=== PATIENT | female | born 1945 | race Caucasian/White ===

== ENCOUNTER 2020-01-29 14:45 | Emergency (ER) | payer OTHER, SELFPAY ==
--- NOTE | ~2020-01-29 | XR_ITS ---
XR knee LT min 4V DATE: 01/29/2020 17:59 INDICATION: Fall. Anterior knee pain. TECHNIQUE: 4 views including crosstable lateral COMPARISON: None FINDINGS: Osteopenia. No fracture or dislocation or joint effusion. No periosteal reaction or bone destruction. There is moderate loss of height of medial compartment joint space. No radiopaque intra-articular loo se body or chondrocalcinosis is evident. IMPRESSION: Osteopenia Moderate loss of height of medial, joint space Reviewed, dictated and finalized at location B.
--- NOTE | ~2020-01-29 | XR_ITS ---
XR tibia fibula LT 2V DATE: 01/29/2020 17:59 INDICATION: Fall. 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 There is moderate loss of height of the med ial compartment joint space. There is diffuse osteopenia. No fracture or dislocation, periosteal reaction or bone destruction of the tibia or fibula. Normal al ignment at the knee and ankle joints. 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 IMPRESSION: Calcification along medial collateral ligament which may be seconda ry to Stella-Stieda disease Osteopenia No fracture or dislocation
[2020-01-29 14:57] VITALS: BP 141/61; PULSE 81; RESP 15; TEMP 36.8; O2SAT 98
--- NOTE | 2020-01-29 18:18 | ED.HEATRA ---
HPI - Head Injury General Chief complaint: Head Injury <Lillie Shipman PA-C - Last Filed: 01/29/20 18:33> Stated complaint: Fall, [place] <Lillie Shipman PA-C - Last Filed: 01/29/20 18:33> Time Seen by Provider: 01/29/20 16:36 <Lillie Shipman PA-C - Last Filed: 01/29/20 18:33> Source: patient <Lillie Shipman PA-C - Last Filed: 01/29/20 18:33> Mode of arrival: ambulatory <PA Crawley Last Filed: 01/29/20 18:33> Limitations: no limitations <Lillie Shipman PA-C - Last Filed: 01/29/20 18:33> History of Present Illness HPI Narrative: Patient presents with chief complaint of laceration over the right brow with bruising after tripping prior to arrival and hitting her face on the cabinet. Patient states she also has bruise to her left forearm and left anterior knee and lower leg from falling. Patient states she is not on a blood thinner besides a baby aspirin daily. Patient denies any change in vision or hearing, loss of consciousness, bleeding from any of her orifices, headache, nausea, vomiting, diarrhea or any other symptoms. Patient denies any neck pain. Patient denies any chest pain or shortness of breath. Patient denies any other injuries. <Lillie Shipman PA-C - Last Filed: 01/29/20 18:33> Related Data Home medications: Home Medications Medication Instructions Recorded Confirmed acyclovir 200 mg capsule 200 mg PO TID 11/16/19 amlodipine 5 mg tablet 5 mg PO DAILY 11/16/19 aspirin 81 mg chewable tablet 81 mg PO DAILY 11/16/19 calcium carbonate 600 mg calcium 600 mg PO DAILY 11/16/19 (1,500 mg) tablet cholecalciferol (vitamin D3) 50 2,000 unit PO DAILY 11/16/19 mcg (2,000 unit) tablet famotidine 20 mg tablet 20 mg PO DAILY 11/16/19 fluticasone propionate 50 1 spray NASAL DAILY 11/16/19 mcg/actuation nasal spray,suspension lisinopril 10 mg tablet 10 mg PO DAILY 11/16/19 meclizine 25 mg tablet 25 mg PO BID 11/16/19 omega 8-ltg-ypg-fish oil 100 cap PO 11/16/19 mg-160 mg-1,000 mg capsule ondansetron HCl 4 mg tablet 4 mg PO Q8H 11/16/19 rosuvastatin 20 mg tablet 20 mg PO DAILY 11/16/19 sertraline 50 mg tablet 50 mg PO DAILY 11/16/19 vitamin B comp and C no.3 15 mg-10 1 cap PO DAILY 11/16/19 mg-50 mg-5 mg-300 mg capsule <Lillie Shipman PA-C - Last Filed: 01/29/20 18:33> Allergies/Adverse reactions: Allergies Allergy/AdvReac Type Severity Reaction Status Date / Time No Known Allergies Allergy Verified 07/13/19 02:09 <Lillie Shipman PA-C - Last Filed: 01/29/20 18:33> PMFSH Social History Social History: Social History Smoking status: Never smoker Alcohol intake: never Additional living arrangements comments: Gender identity (if verbalized by the patient): Female <Lillie Shipman PA-C - Last Filed: 01/29/20 18:33> Exam Narrative: Exam Narrative: GENERAL: Well-appearing, well-nourished, and in no acute distress. HEAD: 2cm laceration over right brow. Well approximated. not bleeding with surrounding ecchymosis. EYES: PERRLA and EOMI. ENT: Nares clear, no rhinorrhea or epistaxis. Mucous membranes moist. Oropharynx without tonsillar hypertrophy exudate or other lesions. Bilateral TMs pearly bishop nonbulging. No hemotympanum. NECK: Supple. No adenopathy or masses. CHEST: Clear to auscultation. No respiratory distress. No wheezes rales or rhonchi HEART: Regular rate and rhythm. No murmur heard. Normal peripheral pulses. ABDOMEN: Soft, nontender, nondistended, normal active bowel sounds. EXTREMITIES: Pain with palpation of contusion to left forearm. No loss of ROM. Tenderness with palpation of anterior left knee and lower leg, with large area of ecchymosis. Weight bearing intact.Gait steady. SKIN: See extremities and head. Warm, dry, no rash. NEURO: No focal deficits. Alert and oriented x3. PSYCH: Normal mood and affect. <Lillie Shipman PA-C - Fabián F
== END 2020-01-29 18:34 | disposition home or self-care (01) ==
PROVIDERS: Emergency Provider General Practice; PCP Emergency Medicine
DX: S01.111A Laceration without foreign body of right eyelid and periocular area, initial encounter (principal); S40.022A Contusion of left upper arm, initial encounter; S80.02XA Contusion of left knee, initial encounter; W01.198A Fall on same level from slipping, tripping and stumbling with subsequent striking against other object, initial encounter
CPT/HCPCS: 12011; 73564; 73590; 99284

== ENCOUNTER → 2020-06-18 09:52 | Outpatient (CLI) | payer OTHER, SELFPAY ==
--- NOTE | ~2020-06-18 | DEXA_ITS ---
Bone Density Report Name: Keyana Jerez Age: 75 Sex: Female Ethnicity: White Date of : 1945 Indication: osteopenia; height loss; hysterectomy; postmenopausal Referring Provider: INGRID QUIROZ Study: Bone densitometry was performed. Exam Date: June 18, 2020 Accession number: [id number] Bone Density: Region BMD T-score Z-score Classification AP Spine (L1, L4) 0.921 -1.1 1.2 Osteopenia Femoral Neck (Left) 0.687 -1.5 0.5 Osteopenia Total Hip (Left) 0.723 -1.8 -0.1 Osteopenia Femoral Neck (Right) 0.692 -1.4 0.6 Osteopenia Total Hip (Right) 0.677 -2.2 -0.5 Osteopenia Total Hip Mean 0.700 -2.0 -0.3 Osteopenia World Health Organization criteria for BMD impression classify patients as: Normal (T-score at or above -1.0), Osteopenia (T-score between -1.0 and -2.5), or Osteoporosis (T-score at or below -2.5). 10-year Fracture Risk(1): Major Osteoporotic Fracture 9.7% Hip Fracture 1.5% Reported Risk Factors: [place] (), Neck BMD=0.692, BMI=35.6 (1) FRAX(R) Version 3.08. Fracture probability calculated for an untreated patient. Fracture probability may be lower if the patient has received treatment. Previous Exams: Region Exam Age BMD T-score BMD Change BMD Change Date g/cm2 vs Baseline vs Previous AP Spine(L1, L4) 06/18/2020 75 0.921 -1.1 -0.226* -0.029* 07/28/2018 73 0.951 -0.8 -0.196* -0.040* 04/28/2016 71 0.991 -0.4 -0.156* -0.156* 12/31/2010 65 1.147 1.0 Total Hip(Left) 06/18/2020 75 0.723 -1.8 -0.152* -0.019 07/28/2018 73 0.742 -1.6 -0.133* -0.032* 04/28/2016 71 0.774 -1.4 -0.102* -0.102* 12/31/2010 65 0.875 -0.5 Total Hip(Right) 06/18/2020 75 0.677 -2.2 -0.138* -0.034* 07/28/2018 73 0.711 -1.9 -0.103* -0.036* 04/28/2016 71 0.748 -1.6 -0.067* -0.067* 12/31/2010 65 0.814 -1.0 *Denotes significance at 95% confidence level, LSC for AP Spine = 0.022 g/cm2, LSC for Total Hip = 0.027 g/cm2 Clinical Information Provided by Patient: Has used the following medications: Vitamin D, Calcium, women's bone vitamin Has the following medical conditions: Hysterectomy Patient maximum height was 62 Menopause Age: 40 No regular weight bearing exercise Drinks caffeinated beverages Onset of menses at age 14 Number of children 2
== END ==
PROVIDERS: PCP Emergency Medicine; Visit Provider Emergency Medicine
DX: Z78.0 Asymptomatic menopausal state (principal); M85.89 Other specified disorders of bone density and structure, multiple sites
CPT/HCPCS: 77080

== ENCOUNTER 2020-07-07 04:48 | Emergency (ER) | payer OTHER, SELFPAY ==
--- NOTE | ~2020-07-07 | XR_ITS ---
EXAMINATION: XR humerus RT DATE: 07/07/2020 06:06 INDICATION: Right upper pain. Fall. TECHNIQUE: 2 views of right humerus were obtained. COMPARISON: Chest 2 views 07/14/2019 FINDINGS: Bone alignment is normal. There is a comminuted fracture of proximal humerus with nondispla meera fracture component at the greater tuberosity and mild impaction at the surgical neck. There is se eladio acromioclavicular joint osteoarthritis and mild glenohumeral joint osteoarthritis. IMPRESSION: 1. Comminuted one-part fracture of proximal right humerus. 2. Polyarticular osteoarthritis. Reviewed, dictated and finalized at location A.
--- NOTE | ~2020-07-07 | CT_ITS ---
EXAMINATION: CT brain wo con DATE: 07/07/2020 05:47 INDICATION: Head injury. TECHNIQUE: Computed tomography (CT) of the head was performed without intravenous contrast. The mA wa s adjusted according to patient size. Iterative reconstruction technique was employed. The dose-lengt h product was 605.33 mGy-cm. COMPARISON: None FINDINGS: There are scattered areas of low attenuation in the cerebral white matter. There is no intr acranial hemorrhage, acute infarction, or abnormal intracranial mass lesion. The ventricles are jorge l l in size. There are likely changes of ocular lens replacement surgeries. There is mild mucosal thick ening in the ethmoid sinuses. The mastoid air cells are normal. IMPRESSION: 1. Mild nonspecific cerebral white matter disease, which likely represents chronic small vessel ische carine disease. Reviewed, dictated and finalized at location A. IMPRESSION: 1. Mild nonspecific cerebral white matter disease, which likely represents edger saw operator nguyen small vessel ischemic disease.
--- NOTE | ~2020-07-07 | XR_ITS ---
EXAMINATION: XR elbow RT min 3V DATE: 07/07/2020 06:06 INDICATION: Right elbow pain. TECHNIQUE: 4 views of right elbow were obtained. COMPARISON: None. FINDINGS: Bone alignment is normal. No fracture. There is mild elbow joint osteoarthritis. There are enthesophytes at the medial and lateral humeral epicondyles. No elbow joint effusion. IMPRESSION: 1. Mild elbow joint osteoarthritis. Reviewed, dictated and finalized at location A.
[2020-07-07 04:52] VITALS: BP 141/54; PULSE 66; RESP 18; TEMP 36.2; O2SAT 100
--- NOTE | 2020-07-07 05:10 | ED.GENADULT ---
HPI - General Adult General Chief complaint: Extremity Injury, Upper Stated complaint: Fall out of bed, right arm pain Time Seen by Provider: 07/07/20 05:10 Source: patient Mode of arrival: ambulatory Limitations: no limitations History of Present Illness HPI narrative: Patient is a 75-year-old female who presents for evaluation of arm pain following a fall. Patient states that she woke up to use the restroom, ambulated to the restroom was sitting on a stool when the stool flipped, she lost her balance and fell. Patient states she is unsure if she hit her head, but did tell her nursing staff that she did not hit her head. Patient is denying any headache, vision changes or nausea. She states that she put her right arm out to break her fall and is experiencing some right upper arm pain. She denies any wrist pain. She denies back pain, hip pain or leg pain. Patient is left-hand dominant. Related Data Home Medications Medication Instructions Recorded Confirmed acyclovir 200 mg capsule 200 mg PO TID 11/16/19 04/23/20 aspirin 81 mg chewable tablet 81 mg PO DAILY 11/16/19 04/23/20 calcium carbonate 600 mg calcium 600 mg PO DAILY 11/16/19 04/23/20 (1,500 mg) tablet cholecalciferol (vitamin D3) 50 2,000 unit PO DAILY 11/16/19 04/23/20 mcg (2,000 unit) tablet famotidine 20 mg tablet 20 mg PO DAILY 11/16/19 04/23/20 meclizine 25 mg tablet 25 mg PO BID 11/16/19 04/23/20 omega 5-evs-jbb-fish oil 100 cap PO 11/16/19 04/23/20 mg-160 mg-1,000 mg capsule ondansetron HCl 4 mg tablet 4 mg PO Q8H 11/16/19 04/23/20 vitamin B comp and C no.3 15 mg-10 1 cap PO DAILY 11/16/19 04/23/20 mg-50 mg-5 mg-300 mg capsule Allergies Allergy/AdvReac Type Severity Reaction Status Date / Time No Known Allergies Allergy Verified 07/07/20 04:55 Review of Systems Review of Systems: Narrative: CONSTITUTIONAL: Denies fever HEENT: Denies vision changes ENT: Denies rhinorrhea, congestion, sore throat, or otalgia. CARDIOVASCULAR: Denies chest pain, palpitations, or edema. RESPIRATORY: Denies cough or dyspnea. GASTROINTESTINAL: Denies abdominal pain, nausea, vomiting, or diarrhea. GENITOURINARY: Denies dysuria or hematuria. SKIN: Denies rash or itching. MUSCULOSKELETAL: Denies back pain,reports right upper extremity pain, right elbow pain NEUROLOGIC: Denies headache, numbness, or weakness. PMFSH Past Medical History Medical History HLD (hyperlipidemia) Osteopenia Spinal stenosis of lumbar region Social History Social History Smoking status: Never smoker Alcohol intake: never Additional living arrangements comments: Gender identity (if verbalized by the patient): Female Exam Narrative: Exam Narrative: Nursing note and vitals reviewed. CONSTITUTIONAL: The patient appears well-developed and well-nourished. No distress. HEAD: Normocephalic and atraumatic. EYES: PERRL, EOMI, normal conjunctiva, anicteric EARS: External ears clear bilaterally, no hemotympanum MOUTH: OP clear, no erythema, exudates NECK: midline trachea, supple, FROM. No midline Cervical spinal tenderness. CARDIOVASCULAR: Normal rate, regular rhythm, normal heart sounds and intact distal pulses. No murmurs, rubs, gallops. PULMONARY: Effort normal and breath sounds normal. No respiratory distress. The patient has no wheezes, rales, ronchi. No chest wall tenderness, crepitus or ecchymoses. ABDOMINAL: Soft. Nontender, nondistended. No palpable masses EXTREMITIES:: moving all extremities symmetrically. -RUE: No deformity. Decreased range of motion at the shoulder, elbow due to pain. Mild ecchymosis at the right wrist without pain. Intact sensation median, ulnar, radial nerve. Pulse 2+. -LUE: No deformity. Normal ROM at shoulder, elbow, wrist, and hand., Sensation intact M/U/R. Pulse 2+ -RLE: No deformity. Normal ROM at hip, knee, ankle. Sensation intact dist
[2020-07-07 06:12] VITALS: BP 137/54; PULSE 63; RESP 20; O2SAT 98
[2020-07-07] MEDS: oxyCODONE/ACETAMINOPHEN 5-325 MG TABLET 1 TABLET PO (06:12)
[2020-07-07 06:50] VITALS: BP 137/54; PULSE 63; RESP 20; O2SAT 98
== END 2020-07-07 06:52 | disposition home or self-care (01) ==
PROVIDERS: Emergency Provider Emergency Medicine; PCP Emergency Medicine
DX: S42.291A Other displaced fracture of upper end of right humerus, initial encounter for closed fracture (principal); E78.5 Hyperlipidemia, unspecified; M85.80 Other specified disorders of bone density and structure, unspecified site; M19.021 Primary osteoarthritis, right elbow; M19.011 Primary osteoarthritis, right shoulder; W18.11XA Fall from or off toilet without subsequent striking against object, initial encounter
CPT/HCPCS: 70450; 73060; 73080; 99284; A4565; A9270

== ENCOUNTER → 2021-01-14 14:01 | Outpatient (CLI) | payer OTHER, SELFPAY ==
--- NOTE | ~2021-01-14 | XR_ITS ---
XR abdomen/kub 1V DATE: 01/14/2021 14:27 INDICATION: Flank pain TECHNIQUE: AP rejection, 3 views COMPARISON: 07/13/2019 CT abdomen pelvis with IV contrast material 05/03/2019 KUB FINDINGS: Diffuse osteopenia. Degenerative change of the lower thoracic spine. Levoscoliosis and dege nerative change of the lumbar spine. Degenerative change at the hip joints, especially on the left. Psoas shadows are intact. No visceromegaly is evident. There is no evidence of bowel obstruction. The lung bases appear clear. There is prominent calcification of the left of the first lumbar vertebral body which corresponds on the prior CT abdomen pelvis examination due to prominent calcification at the origin of the left derrick l artery. Abdominal aortic calcification is noted. IMPRESSION: Nonspecific abdomen; no significant change since 05/03/2019 Reviewed, dictated and finalized at Location A. Reviewed, dictated and finalized at location A. SPLITTER
== END ==
PROVIDERS: PCP Urology; Visit Provider Urology
DX: R10.9 Unspecified abdominal pain (principal); M85.88 Other specified disorders of bone density and structure, other site
CPT/HCPCS: 74018

== ENCOUNTER → 2021-01-27 12:02 | Outpatient (CLI) | payer OTHER, SELFPAY ==
--- NOTE | ~2021-01-27 | CT_ITS ---
EXAMINATION: CT abdomen pelvis wo/w con EXAM DATE: 01/27/2021 13:16 INDICATION: Microscopic hematuria. TECHNIQUE: Spiral CT of the abdomen and pelvis was performed without contrast. The patient was then injected with small bolus intravenous Omnipaque 350, followed by delay of approximately 10 minutes to allow collecting system to opacify. A post contrast scan abdomen and pelvis was performed during inj ection of remaining contrast. A total of 130 cc intravenous contrast was administered. The dose-marisela th product (DLP) for this examination was 1983.67 mGy-cm. The exposure was tailored according to pat ient size (auto mA exposure control), and iterative reconstruction (ASIR) was used as additional dose reduction technique. Comparison is made to prior examination from 07/13/2019. FINDINGS: There is no hydronephrosis or nephrolithiasis. There is a 7 cm right renal cyst. The kidn eys enhance symmetrically. There are no suspicious renal lesions. The calyces and opacified portion s of ureters are unremarkable, without filling defects or focal suspicious strictures. Right ureter w as not opacified. Punctate focus of bladder gas. The uterus is not identified and has likely been shipley rgically resected. The liver, spleen, adrenal glands and pancreas are unremarkable. Gallbladder is unremarkable. No bi liary obstruction. There is no retroperitoneal or pelvic lymphadenopathy. There is mild scattered arteriosclerotic disease. The appendix is not positively visualized. There is no pericecal inflammatory change to suggest appe ndicitis. The stomach and small bowel are unremarkable. There is expected amount of colonic stool. No free intraperitoneal gas. The heart is normal in size. There are no pericardial or pleural e ffusions. The lung bases are unremarkable. There are no osteoblastic or osteolytic lesions identifi ed. IMPRESSION: 1. No suspicious genitourinary findings. Reviewed, dictated and finalized at location B. ERIOLOGIST SOIL
[2021-01-27 12:43] LABS: Estimated Glomerular Filt Rate > 60
== END ==
PROVIDERS: PCP Emergency Medicine; Visit Provider Nurse Practitioner Adult Health
DX: R31.29 Other microscopic hematuria (principal)
CPT/HCPCS: 74178; Q9967

== ENCOUNTER → 2022-10-01 10:34 | Outpatient (CLI) | payer OTHER, SELFPAY ==
--- NOTE | ~2022-10-01 | US_ITS ---
EXAMINATION: US thyroid DATE: 10/01/2022 11:01 INDICATION: Nontoxic single thyroid nodule. TECHNIQUE: Multiple ultrasound images of the thyroid were obtained. COMPARISON: None. FINDINGS: The right thyroid lobe measures 5.3 x 2.5 x 2.6 cm. The left thyroid lobe measures 4.7 x 3.1 x 1.9 c m. The thyroid is diffusely heterogeneous and hypoechoic. Vascularity is normal. In the right thyroi d lobe, there is an 18 mm mixed cystic and solid, hypoechoic, wider than tall nodule with smooth collin in without echogenic foci (TI-RADS TR3). In the right thyroid lobe, there is an 8 mm solid, hypoechoi c, wider than tall nodule with smooth margin without echogenic foci (TR4). IMPRESSION: 1. Thyroid nodules. Consider thyroid ultrasound in one year. 2. Heterogeneous thyroid, likely chronic lymphocytic (Tyesha) thyroiditis. Reviewed, dictated and finalized at location A. LY DAY CARE PROVIDER
== END ==
PROVIDERS: PCP Emergency Medicine; Visit Provider Emergency Medicine
DX: E04.2 Nontoxic multinodular goiter (principal)
CPT/HCPCS: 76536

== ENCOUNTER → 2023-03-10 13:24 | Outpatient (CLI) | payer OTHER, SELFPAY ==
--- NOTE | ~2023-03-10 | XR_ITS ---
XR shoulder LT min 2V DATE: 03/10/2023 13:38 INDICATION: Left shoulder pain TECHNIQUE: 4 views COMPARISON: None FINDINGS: There is osteopenia. No fracture or dislocation, periosteal reaction or bone destruction. No abnormal left shoulder soft t issue calcification. IMPRESSION: Osteopenia Reviewed, dictated and finalized at location B. IMPRESSION: Osteopenia
== END ==
PROVIDERS: PCP Emergency Medicine; Visit Provider Emergency Medicine
DX: M25.512 Pain in left shoulder (principal); M85.812 Other specified disorders of bone density and structure, left shoulder
CPT/HCPCS: 73030

== ENCOUNTER → 2023-03-16 09:42 | Outpatient (CLI) | payer OTHER, SELFPAY ==
--- NOTE | ~2023-03-16 | MR_ITS ---
EXAMINATION: MR shoulder LT wo con DATE: 03/16/2023 10:28 INDICATION: Left shoulder pain TECHNIQUE: Magnetic resonance imaging (MRI) of the left shoulder was performed without intravenous co ntrast. Sequences included axial PD-weighted FS FSE, coronal oblique PD-weighted FS FSE, coronal obli que T2-weighted FS FSE, sagittal PD-weighted FS FSE, and sagittal T1-weighted SE. COMPARISON: None. FINDINGS: Coracoacromial arch: The acromion undersurface is flat in morphology (type I). The coracoacromial ligament is normal. Mode rate to severe acromioclavicular osteoarthritis. Rotator cuff: Severe supraspinatus and mild infraspinatus tendinopathy without discrete tear. The teres minor and s ubscapularis tendons are normal. Normal rotator cuff muscle bulk and signal. Biceps tendon, glenoid labrum and glenohumeral cartilage: Mild tendinopathy without tear of the intra-articular long head biceps tendon. The labrum is diffusel y small likely representing chronic degeneration without discrete labral tear. Glenohumeral cartilag e is normal. Fluid: Small glenohumeral joint effusion with proportional extension of a small amount of fluid into the bic eps tendon sheath. No loose osteochondral bodies. Moderate amount of fluid and mild synovitis in the subacromial/subdeltoid bursa consistent with moderate bursitis. Bones: Normal marrow signal with no edema, fracture or abnormal marrow replacing process. Mild cystic change along the superior facet of the greater tuberosity. IMPRESSION: 1. Severe supraspinatus and mild infraspinatus tendinopathy without discrete tear. 2. Moderate subacromial/subdeltoid bursitis. 3. Moderate to severe acromioclavicular osteoarthritis. 4. Diffusely small glenoid labrum likely chronic degeneration without discrete tear. Reviewed, dictated and finalized at location A. IMPRESSION: 1. Severe supraspinatus and mild infraspinatus tendinopathy without discrete te ar. 2. Moderate subacromial/subdeltoid bursitis. 3. Moderate to severe acromioclavicular osteoarthritis. 4. Diffusely small glenoid labrum likely chronic degeneration without discrete tear.
== END ==
PROVIDERS: PCP Emergency Medicine; Visit Provider Emergency Medicine
DX: S46.002A Unspecified injury of muscle(s) and tendon(s) of the rotator cuff of left shoulder, initial encounter (principal); M75.52 Bursitis of left shoulder; M19.012 Primary osteoarthritis, left shoulder; T14.90XA Injury, unspecified, initial encounter
CPT/HCPCS: 73221

== ENCOUNTER 2023-09-17 10:16 | Emergency (ER) | payer OTHER, SELFPAY ==
[2023-09-17 10:31] VITALS: BP 135/60; PULSE 90; RESP 18; TEMP 36.6; O2SAT 97
--- NOTE | 2023-09-17 10:37 | ED.FEMALEGU ---
HPI - Female Genitourinary General Chief complaint: Urogenital-Female Stated complaint: uti symptoms Source: patient and RN notes reviewed History of Present Illness HPI Narrative: 78 yo F presents to urgent care with complaints of lower pelvis pressure, cramping, and noticing blood in her urine. Pt states the pressure and cramping started last night and she was up all night going to the bathroom. Pt states she was having BMs each time that were not diarrhea but normal BMs. Pt states she has been battling some constipation recently but hasn't taken the powder supplement for it yet. Pt states she took (1) Cipro pill last night and another this morning. Pt also took what she describes as Azo for her pressure. Pt states she hasn't had any cramping or blood in the toilet today. Pt states the blood in the toilet she noticed, was the smaller than a pencil eraser and has noticed it in her Poise pads recently. Denies any fevers, vomiting, chest pain, SOB, or other symptoms. Related Data Home Medications Medication Instructions Recorded Confirmed aspirin 81 mg chewable tablet 81 mg PO DAILY 11/16/19 09/17/23 calcium carbonate 600 mg calcium 600 mg PO DAILY 11/16/19 09/17/23 (1,500 mg) tablet (Calcium) cholecalciferol (vitamin D3) 50 2,000 unit PO DAILY 11/16/19 09/17/23 mcg (2,000 unit) tablet omega 7-npt-nqo-fish oil 100 cap PO 11/16/19 08/23/23 mg-160 mg-1,000 mg capsule (Fish Oil) vitamin B comp and C no.3 15 mg-10 1 cap PO DAILY 11/16/19 09/17/23 mg-50 mg-5 mg-300 mg capsule (B Complex Plus Vitamin C) Allergies Allergy/AdvReac Type Severity Reaction Status Date / Time No Known Allergies Allergy Verified 09/17/23 10:45 Review of Systems Review of Systems: CONSTITUTIONAL: Denies fever, chills, or sweats. EYES: Denies visual changes, redness, or discharge. ENT: Denies otalgia and sore throat CARDIOVASCULAR: Denies chest pain, palpitations, or edema. RESPIRATORY: Denies cough or dyspnea. GASTROINTESTINAL: Lower abdominal cramping GENITOURINARY: pelvic pressure and possible hematuria SKIN: Denies rash or itching. MUSCULOSKELETAL: Denies back pain, joint pain, or myalgia. NEUROLOGIC: Denies headache, numbness, or weakness. Pertinent positives per HPI. [facility] Past Medical History Medical History Acute bilateral low back pain without sciatica Acute non-recurrent frontal sinusitis Acute non-recurrent maxillary sinusitis Acute recurrent maxillary sinusitis Allergic contact dermatitis due to plants, except food Arthralgia of right knee At risk for bone density loss Back spasm BMI 35.0-35.9,adult Body mass index (BMI) 35 or more (04/23/16) Body mass index (BMI) 35 or more (03/22/18) Body mass index [BMI] 33.0-33.9, adult (05/03/18) Breast cancer screening by mammogram Chest pain, exertional Cough Dehydration Depression Dysuria Encounter for general adult medical examination w/o abnormal findings (12/29/16) Encounter for screening colonoscopy Fracture of surgical neck of right humerus Heart palpitations Hematuria, unspecified History of kidney stones History of mammography, screening HLD (hyperlipidemia) HTN (hypertension), benign Kidney stone on left side Mixed hyperlipidemia Osteopenia Other chronic pain Patient had no falls in past year Primary insomnia 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
== END 2023-09-17 11:11 | disposition home or self-care (01) ==
PROVIDERS: Emergency Provider Nurse Practitioner Family; PCP Emergency Medicine
DX: N39.0 Urinary tract infection, site not specified (principal); I10 Essential (primary) hypertension; E78.2 Mixed hyperlipidemia; M16.0 Bilateral primary osteoarthritis of hip; M48.061 Spinal stenosis, lumbar region without neurogenic claudication; Z79.82 Long term (current) use of aspirin
CPT/HCPCS: 81003; 87086; 99213; G0463

== ENCOUNTER → 2024-01-11 10:30 | Outpatient (CLI) | payer OTHER, SELFPAY ==
--- NOTE | ~2024-01-11 | DEXA_ITS ---
Bone Density Report Name: JAREK GRUBER Age: 78 Sex: Female Ethnicity: White Date of : 1945 Indication: osteopenia; height loss; hysterectomy; Referring Provider: INGRID QUIROZ Study: Bone densitometry was performed. Exam Date: January 11, 2024 Accession number: [id number] Bone Density: Region BMD T-score Z-score Classification AP Spine (L1-L4) 0.941 -1.0 1.5 Normal Femoral Neck (Left) 0.677 -1.6 0.6 Osteopenia Total Hip (Left) 0.753 -1.5 0.3 Osteopenia Femoral Neck (Right) 0.668 -1.6 0.5 Osteopenia Total Hip (Right) 0.641 -2.5 -0.6 Osteoporosis Total Hip Mean 0.697 -2.0 -0.2 Osteopenia World Health Organization criteria for BMD impression classify patients as: Normal (T-score at or above -1.0), Osteopenia (T-score between -1.0 and -2.5), or Osteoporosis (T-score at or below -2.5). 10-year Fracture Risk: FRAX not reported because: Some T-score for Spine Total or Hip Total or Femoral Neck at or below -2.5 Previous Exams: Region Exam Age BMD T-score BMD Change BMD Change Date g/cm2 vs Baseline vs Previous AP Spine(L1-L4) 01/11/2024 78 0.941 -1.0 -0.263* -0.084* 07/28/2018 73 1.025 -0.2 -0.179* -0.050* 04/28/2016 71 1.075 0.3 -0.129* -0.129* 12/31/2010 65 1.204 1.4 Total Hip(Left) 01/11/2024 78 0.753 -1.5 -0.122* 0.030* 06/18/2020 75 0.723 -1.8 -0.152* -0.019 07/28/2018 73 0.742 -1.6 -0.133* -0.032* 04/28/2016 71 0.774 -1.4 -0.102* -0.102* 12/31/2010 65 0.875 -0.5 Total Hip(Right) 01/11/2024 78 0.641 -2.5 -0.174* -0.036* 06/18/2020 75 0.677 -2.2 -0.138* -0.034* 07/28/2018 73 0.711 -1.9 -0.103* -0.036* 04/28/2016 71 0.748 -1.6 -0.067* -0.067* 12/31/2010 65 0.814 -1.0 *Denotes significance at 95% confidence level, LSC for AP Spine = 0.022 g/cm2, LSC for Total Hip = 0.027 g/cm2 Clinical Information Provided by Patient: Has used the following medications: Vitamin D, Calcium Has the following medical conditions: Hysterectomy Patient maximum height was 62 Menopause Age: 40 No regular weight bearing exercise Does not regularly consume dairy products Drinks caffeinated beverages Onset of menses at age 14 Number of children 2 Impression: The patient has osteoporosis, based on the Right Total H
== END ==
PROVIDERS: PCP Emergency Medicine; Visit Provider Emergency Medicine
DX: M81.0 Age-related osteoporosis without current pathological fracture (principal); Z78.0 Asymptomatic menopausal state
CPT/HCPCS: 77080

== ENCOUNTER 2024-02-18 09:59 | Emergency (ER) | payer OTHER, SELFPAY ==
[2024-02-18 10:20] VITALS: BP 139/62; PULSE 87; RESP 16; TEMP 36.5; O2SAT 100
[2024-02-18] MEDS: LIDOCAINE 5% PATCH 1 PATCH TRANSDERM (11:45)
[2024-02-18] MEDS: KETOROLAC 30 MG/ML VIAL (*BKC) 15 MG IM (11:46)
--- NOTE | 2024-02-18 14:23 | ED.NECK ---
HPI - Neck Pain/Injury General Chief Complaint: Neck Pain/Injury Stated Complaint: neck pain Time Seen by Provider: 02/18/24 11:05 History of Present Illness HPI Narrative: Patient presenting here with left-sided neck pain which started last night, she was reaching for something tolerated off and pulled a muscle to her left neck, she has no focal numbness or weakness. Did take some Tylenol and tramadol which helped the pain, but at night it does hurt quite a bit especially in certain position. Related Data Home Medications Medication Instructions Recorded Confirmed aspirin 81 mg chewable tablet 81 mg PO DAILY 11/16/19 12/27/23 calcium carbonate 600 mg calcium 600 mg PO DAILY 11/16/19 12/27/23 (1,500 mg) tablet (Calcium) omega 5-pfy-lsp-fish oil 100 cap PO 11/16/19 12/27/23 mg-160 mg-1,000 mg capsule (Fish Oil) vitamin B comp and C no.3 15 mg-10 1 cap PO DAILY 11/16/19 12/27/23 mg-50 mg-5 mg-300 mg capsule (B Complex Plus Vitamin C) cholecalciferol (vitamin D3) 50 4,000 unit PO DAILY 01/12/24 mcg (2,000 unit) tablet Allergies Allergy/AdvReac Type Severity Reaction Status Date / Time No Known Allergies Allergy Verified 02/18/24 10:00 Review of Systems Review of Systems: CONST: No fever. HEENT: No sore throat C/V: No chest pain RESP: No cough GI: No abdominal pain : No dysuria. M/S: Left-sided neck/upper shoulder pain SKIN: No rash. NEURO: [No headache or focal numbness or weakness] PSYCH: [No depression] [facility] Past Medical History Medical History Acute bilateral low back pain without sciatica Acute non-recurrent frontal sinusitis Acute non-recurrent maxillary sinusitis Acute recurrent maxillary sinusitis Allergic contact dermatitis due to plants, except food Arthralgia of right knee At risk for bone density loss Back spasm BMI 35.0-35.9,adult Body mass index (BMI) 35 or more (04/23/16) Body mass index (BMI) 35 or more (03/22/18) Body mass index [BMI] 33.0-33.9, adult (05/03/18) Breast cancer screening by mammogram Chest pain, exertional Cough Dehydration Depression Dysuria Encounter for general adult medical examination w/o abnormal findings (12/29/16) Encounter for screening colonoscopy Fracture of surgical neck of right humerus Heart palpitations Hematuria, unspecified History of kidney stones History of mammography, screening HLD (hyperlipidemia) HTN (hypertension), benign Kidney stone on left side Mixed hyperlipidemia Osteopenia Other chronic pain Patient had no falls in past year Primary insomnia 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 Renal cyst, right Right upper quadrant abdominal pain Rt flank pain Spinal stenosis of lumbar region Urinary tract infection with hematuria Surgical History Surgical History History of total left knee replacement Family History Family History Father Family history of cardiovascular disease, Onset Age: 82 Hypertension Social History Social History (Updated 12/27/23 @ 09:53 by Caro Hopper MA) Smoking status: Never smoker Alcohol intake: never Current Housing: Decline to Answer Concerned About Future Housing: Decline to Answer Difficulty Paying Gas/Electric Bills: Decline to Answer Difficulty Paying for Meds: Decline to Answer Currently Unemployed: Decline to Answer Education: Decline to Answer Difficulty w/ Childcare or Family Care: Decline to Answer Living arrangements: with family Occupation/Education: retired Gender identity (if verbalized by the patient): Female Exam Narrative: EXAMINATION OF ORGAN SYSTEMS/BODY AREAS: Constitutional: Vital signs per nursing GENERAL:[No acute distress, non-toxic appearing.] HEAD: Normal with no signs of head trauma. E
== END 2024-02-18 12:00 | disposition home or self-care (01) ==
LOC: ANHED 11:53
PROVIDERS: Emergency Provider Emergency Medicine; PCP Emergency Medicine
DX: S13.9XXA Sprain of joints and ligaments of unspecified parts of neck, initial encounter (principal); I10 Essential (primary) hypertension; E78.5 Hyperlipidemia, unspecified; M85.80 Other specified disorders of bone density and structure, unspecified site; M16.0 Bilateral primary osteoarthritis of hip; M17.11 Unilateral primary osteoarthritis, right knee; Z96.652 Presence of left artificial knee joint; Z87.440 Personal history of urinary (tract) infections; Z87.442 Personal history of urinary calculi; Z79.82 Long term (current) use of aspirin; X50.9XXA Other and unspecified overexertion or strenuous movements or postures, initial encounter
CPT/HCPCS: 96372; 99283; A9270; J1885

== ENCOUNTER 2024-05-30 07:22 | Outpatient (CLI) | payer OTHER, SELFPAY ==
--- NOTE | ~2024-05-30 | MR_ITS ---
MRI of the lumbar spine Clinical History: Radiculopathy Technique: Axial T2-weighted images, and sagittal T1-weighted, T2-weighted, and T2 fat-sat images wer e acquired. COMPARISON: 11/17/2019 Findings: No fracture identified. Minimal grade 1 anterolisthesis of L4 over L5 present. No suspiciou s bone marrow signal abnormality seen. At L1-L2, there is minimal disc bulge with advanced facet arthropathy. No central canal stenosis. The re is severe left neural foraminal narrowing, and moderate neural foraminal narrowing. At L2-L3, there is minimal disc bulge with advanced facet arthropathy. No central canal stenosis. The re is minimal bilateral neural foraminal narrowing. At L3-L4, there is disc bulge and severe facet arthropathy, resulting in severe spinal canal stenosis /thecal sac compression. There is moderate right neural foraminal narrowing, and mild left neural for aminal narrowing. At L4-L5, there is diffuse disc bulge and severe facet arthropathy, resulting in severe spinal canal stenosis/thecal sac compression. There is moderate left neural foraminal narrowing, and severe right neural foraminal narrowing. At L5-S1, there is disc bulge and severe facet arthropathy, with bilateral lateral recess stenosis. T here is severe bilateral neural foraminal, or mass. Paravertebral soft tissues are unremarkable. Impression: Severe degenerative spondylosis from L3 through S1, as detailed above. Mild degenerative spondylosis of the upper lumbar spine. Reviewed, dictated and finalized at [facility]. Impression: Severe degenerative spondylosis from L3 through S1, as detailed above. Mild degenerative spondylosis of the upper lumbar spine.
== END 2024-05-30 07:23 ==
LOC: MICIMG 07:23
PROVIDERS: PCP Emergency Medicine; Visit Provider Nurse Practitioner Family
DX: M54.16 Radiculopathy, lumbar region (principal); M43.06 Spondylolysis, lumbar region
CPT/HCPCS: 72148

== ENCOUNTER 2024-07-31 08:32 | Outpatient (CLI) | payer OTHER, SELFPAY ==
--- NOTE | ~2024-07-31 | US_ITS ---
COMPLETE ABDOMINAL ULTRASOUND Ordering provider: Vance Parish MD History: . R10.9 - Unspecified abdominal pain . Comparison: None. FINDINGS: LIVER: Normal size and echotexture. No focal hepatic lesions or perihepatic fluid collections are jocy ntified. Normal flow of the portal vein. GALLBLADDER: Unremarkable. No evidence for stones, sludge, gallbladder wall thickening or pericholecy stic fluid collections. A negative sonographic Tillman's sign was noted. BILIARY DUCTS: No evidence for intra or extrahepatic biliary dilation. Common bile duct measures 3.4 mm in diameter which is within normal limits. PANCREAS: Normal echotexture and size. SPLEEN: Normal size, echotexture and contour and measures 9.4 cm in length. KIDNEYS: Right measures 9.6x 5.2x 5.4 cm in length and the left 8.9x 5x 4.9 cm in length. There is no evidence for hydronephrosis, solid renal mass, renal calculi or perinephric fluid collections. Right upper pole renal cyst is seen measuring 7.4 x 6.6 x 6.7 cm. UPPER ABDOMINAL AORTA: Normal in caliber. Proximal aorta measures 1.8 cm. Mid aorta measures 1.6 cm. Distal aorta measures 1.6 cm. IVC: Patent. FREE FLUID: None. IMPRESSION: Right renal cyst. Otherwise, Unremarkable complete ultrasound of the abdomen. Reviewed, dictated and finalized at location [facility].
== END 2024-07-31 08:33 | disposition home or self-care (01) ==
LOC: MICIMG 08:35
PROVIDERS: PCP Emergency Medicine; Visit Provider Emergency Medicine
DX: N28.1 Cyst of kidney, acquired (principal)
CPT/HCPCS: 76700

== ENCOUNTER 2024-12-26 09:09 | Outpatient (CLI) | payer OTHER, SELFPAY ==
--- NOTE | ~2024-12-26 | XR_ITS ---
Right Knee Technique: AP, lateral, and sunrise views were obtained. Clinical History: Pain Findings: No fracture or dislocation is seen. There is severe medial compartment narrowing with media l joint line osteophyte formation. There is mild degenerative change of the lateral and patellofemora l compartment. Impression: Severe medial compartment degenerative change. Mild degenerative change of the lateral and patellofem oral compartments. Reviewed, dictated and finalized at [facility] Impression: Severe medial compartment degenerative change. Mild degenerative change of the lateral and patellofemoral compartments.
== END 2024-12-26 09:10 | disposition home or self-care (01) ==
PROVIDERS: PCP Emergency Medicine; Visit Provider Nurse Practitioner Family
DX: M17.11 Unilateral primary osteoarthritis, right knee (principal)
CPT/HCPCS: 73560

== ENCOUNTER 2025-04-09 15:10 | Emergency (ER) | payer OTHER, SELFPAY ==
--- OUTSIDE RECORDS SUMMARY | 2025-04-09 15:14 | XMS_ITS | Clinical Summary ---
Author Organization [facility] Address [facility] [place] [address] Care Team Providers Care Grain Inspector Name Role Phone Vance Parish MD Primary Care Provider + [phone] Allergies No known active allergies Medications traMADol (ULTRAM) 50 MG tabletIndication s:Acute Pain < 7 Day Supply Take 1 tablet (50 mg total) by mouth every 6 (six) hours as needed for Pain. Indications : Acute Pain < 7 Day Supply 20 tablet 08/29/2022 Active Social History Tobacco Use Types Packs/Day Years Used Date Smoking Tobacco: Never Assessed Comments Unknown Sex and Gender Information Value Date Recorded Sex Assigned at Not on file Legal Sex Female 7:28 PM CDT Gender Identity Not on file Sexual Orientation Not on file Last Filed Vital Signs Vital Sign Reading Time Taken Comments Blood Pressure 180/75 08/29/2022 3:03 AM CDT Pulse 81 08/29/2022 3:03 AM CDT Temperature 37 C (98.6 F) 08/29/2022 3:02 AM CDT Respiratory Rate 16 08/29/2022 3:03 AM CDT Oxygen Saturation 96% 08/29/2022 3:01 AM CDT Inhaled Oxygen Concentration - - Weight 90.3 kg (199 lb) 08/29/2022 3:02 AM CDT Height 152.4 cm (5') 08/29/2022 3:02 AM CDT Body Mass Index 38.86 08/29/2022 3:02 AM CDT Plan of Treatment Health Maintenance Due Date Last Done Comments Hepatitis C 1965 DTaP, Tdap and Td Vaccines ( 1 - Tdap) 1966 Pneumococcal Vaccine: 50+ Ye ars (1 of 1 - PCV) 1997 Zoster Vaccines (1 of 2) 1997 Annual Medicare Wellness Visit 2012 Dexa Scan (General) 2012 RSV Immunization or 60+ Years (1 - 1-dose 75+ series) 2022 COVID-19 Vaccine (1 - 2023-2 5 season) 2024 Meningococcal B Vaccine Aged Out No l onger eligible based on patient's age to complete this topic Meningococcal Vaccine Aged Out No jaylon aslvador eligible based on patient's age to complete this topic RSV Immunizations Under 20 Months Aged Out No longer eligible based on patient's age to complete this topic Insurance [employer] Care Teams Grain Inspector Relationship Specialty Start Date End Date Vance Parish MD [address] [place] [address] PCP - General INTERNAL MEDICINE 11/30/19
--- OUTSIDE RECORDS SUMMARY | 2025-04-09 15:14 | XMS_ITS | Encounter Summary ---
Author Organization [facility] Address [facility] [place] [address] Care Team Providers Care Dyed Yarn Operator Name Role Phone Vance Parish MD Primary Care Provider [phone] Encounter Details Date Type Department Care Team (Late st Contact Info) Description 02/24/2021 Telephone [facility] Multispecialty Care - [facility] [address] [facility] [address] [facility], [address] [place] [address] Tanner Kearns MD Social History Tobacco Use Types Packs/Day Years Used Date Smoking Tobacco: Never Assessed Comments Unknown Sex and Gender Information Value Date Recorded Sex Assigned at Not on file Legal Sex Female 7:28 PM CDT Gender Identity Not on file Sexual Orientation Not on file documented as of this encounter Plan of Treatment Not on file documented as of this encounter Visit Diagnoses Not on filedocumented in this encounter Care Teams Dyed Yarn Operator Relationship Specialty Start Date End Date Vance Parish MD [address] [place] [address] PCP - General INTERNAL MEDICINE 11/30/19 documented as of this encounter
--- OUTSIDE RECORDS SUMMARY | 2025-04-09 16:09 | XMS_ITS | Encounter Summary ---
Author Organization [facility] Address [facility] [place] [address] Care Team Providers Care Certified Surgical Tech/First Assistant Name Role Phone Vance Parish MD Primary Care Provider [phone] Encounter Details Date Type Department Care Team (Late st Contact Info) Description 02/24/2021 Telephone [facility] Multispecialty Care - [facility] [address] [facility], [address] [place] [address] Tanner Kearns MD Social History Tobacco Use [...] on filedocumented in this encounter Care Teams Certified Surgical Tech/First Assistant Relationship Specialty Start Date End Date Vance Parish MD [address] [place] [address] PCP - General INTERNAL MEDICINE 11/30/19 documented as of this encounter
--- OUTSIDE RECORDS SUMMARY | 2025-04-09 16:09 | XMS_ITS | Clinical Summary ---
Author Organization [facility] Address [facility] [place] [address] Care Team Providers Care Tractor Engine Mechanic Name Role Phone Vance Parish MD Primary Care Provider + [phone] Allergies No known active allergies Medications traMADol [...] topic Meningococcal Vaccine Aged Out No jaylon salvador eligible based on patient's age to complete this topic RSV Immunizations Under 20 Months Aged Out No longer eligible based on patient's age to complete this topic Insurance [employer] Care Teams Tractor Engine Mechanic Relationship Specialty Start Date End Date Vance Parish MD [address] [place] [address] PCP - General INTERNAL MEDICINE 11/30/19
== END 2025-04-09 15:25 | disposition left against medical advice (07) ==
LOC: ANHED 16:07
PROVIDERS: PCP Emergency Medicine
DX: Z53.21 Procedure and treatment not carried out due to patient leaving prior to being seen by health care provider (principal)
CPT/HCPCS: 99199

== ENCOUNTER 2025-08-21 13:04 | Emergency (ER) | payer OTHER, SELFPAY ==
--- NOTE | ~2025-08-21 | CT_ITS ---
EXAMINATION: CT abdomen pelvis w con DATE: 08/21/2025 14:16 INDICATION: Generalized abdominal pain. TECHNIQUE: Computed tomography (CT) of the abdomen and pelvis was performed with 100 mL Omnipaque 350 intravenous contrast. Automated exposure control and iterative reconstruction technique were employed. The dose-length product was 1450.08 mGy-cm. COMPARISON: CT abdomen and pelvis 01/27/2021 FINDINGS: The visualized portions of the lung bases demonstrate mild atelectasis. A calcified right lung nodule is consistent with old granulomatous disease. No pleural effusion. The heart size is normal. No pericardial effusion. There is a small sliding hiatal hernia. There is a 4 mm cyst in the liver. The gallbladder, spleen, pancreas, and adrenal glands are normal. There are cysts in the kidneys measuring up to 7.7 cm on the right. There are no dilated loops of bowel. The appendix is not visualized. There are no pathologically enlarged lymph nodes. There is no free intraperitoneal fluid. There is moderate lumbar spondylosis. There is a chronic compression fracture of T11. IMPRESSION: 1. Small sliding hiatal hernia. Reviewed, dictated and finalized at location E.
[2025-08-21 13:06] VITALS: BP 150/70; PULSE 95; RESP 16; TEMP 36.9; O2SAT 97
[2025-08-21 13:36] LABS: Hematocrit 42.3 % (37.0-47.0); Hemoglobin 13.6 g/dL (12.0-15.0); Immature Granulocyte Percent A 0.2 % (0-0.5); Lymphocytes Absolute Auto 2.13 K/mm3 (0.9-3.2); Mean Corpuscular HGB Conc 32.2 g/dl (32-36); Mean Corpuscular Hemoglobin 29.0 pg (26-34); Mean Corpuscular Volume 90.2 fl (80-100); Nucleated Red Blood Cells Absolute Auto 0.000 K/mm3 (0.0-0.012); Nucleated Red Blood Cells Perc 0.0 % (0.0-0.2); Platelet Count Result 260 k/mm3 (150-375); Red Blood Count 4.69 M/mm3 (4.2-5.4); White Blood Count 9.2 K/mm3 (4.5-10.0)
[2025-08-21 13:40] LABS: Add Urine Microscopic? YES
[2025-08-21 13:42] LABS: Appearance Urine Clear (Clear); Specific Grav Ur 1.030 (1.001-1.035)
[2025-08-21 13:43] LABS: Glucose Urine UA Trace mg/dL (Negative); Leukocyte Esterase Ur Negative LEU/UL (Negative); Nitrate Urine Negative (Negative)
--- NOTE | 2025-08-21 13:44 | ED.GENADULT ---
HPI - General Adult General Chief complaint: Abdominal Pain Stated complaint: abdominal pain Time Seen by Provider: 08/21/25 13:20 History of Present Illness HPI narrative: 72-year-old female presents to the emergency department for evaluation for diffuse abdominal pain. Patient states she has been having abdominal pain developing over the last few weeks but worsened acutely over the last 4 days. Patient states that is more lower abdominal pain but patient does have diffuse abdominal tenderness to palpation. Related Data Home Medications ?Medication ?Instructions ?Recorded ?Confirmed ?Last Taken ?Type aspirin 81 mg chewable tablet 81 mg PO DAILY 11/16/19 05/04/25 Unknown History calcium carbonate (Calcium 600) 600 mg PO DAILY 11/16/19 05/04/25 Unknown History omega 4-hek-lgc-fish oil 100 cap PO 11/16/19 05/04/25 Unknown History mg-160 mg-1,000 mg capsule (Fish Oil) cholecalciferol (vitamin D3) 50 4,000 unit PO DAILY 01/12/24 05/04/25 Unknown History mcg (2,000 unit) tablet Allergies Allergy/AdvReac Type Severity Reaction Status Date / Time No Known Allergies Allergy Verified 08/21/25 13:10 Review of Systems Review of Systems: All systems reviewed & are unremarkable except as noted in HPI and below PMFSH Past Medical History Medical History Nausea Epigastric pain BMI 33.0-33.9,adult Neck Pain Shoulder pain Cervical strain Sinusitis Vaginal yeast infection Acute bilateral low back pain without sciatica Acute non-recurrent frontal sinusitis Acute non-recurrent maxillary sinusitis Acute recurrent maxillary sinusitis Allergic contact dermatitis due to plants, except food Arthralgia of right knee At risk for bone density loss Back spasm Body mass index [BMI] 33.0-33.9, adult (05/03/18) Body mass index (BMI) 35 or more (03/22/18) Body mass index (BMI) 35 or more (04/23/16) Chest pain, exertional Cough Dehydration Depression Dysuria Encounter for general adult medical examination w/o abnormal findings (12/29/16) Encounter for screening colonoscopy HTN (hypertension), benign Heart palpitations Hematuria, unspecified History of kidney stones History of mammography, screening Kidney stone on left side Mixed hyperlipidemia Other chronic pain Patient had no falls in past year Primary insomnia 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 Renal cyst, right Right upper quadrant abdominal pain Rt flank pain Urinary tract infection with hematuria Breast cancer screening by mammogram Fracture of surgical neck of right humerus BMI 35.0-35.9,adult Osteopenia HLD (hyperlipidemia) Spinal stenosis of lumbar region Surgical History Surgical History History of total left knee replacement Family History Family History Father Family history of cardiovascular disease, Onset Age: 82 Hypertension Social History Social History (Updated 05/04/25 @ 10:21 by Caro Hopper MA) Smoking status: Never smoker Alcohol intake: never Substance use: never Substance use type: does not use Do You Feel Safe in your Home?: Yes Lack of Transportation: No Lack of Food: Never True Current Housing: Decline to Answer Concerned About Future Housing: Decline to Answer Difficulty Paying Gas/Electric Bills: Decline to Answer Difficulty Paying for Meds: Decline to Answer Currently Unemployed: Decline to Answer Education: Decline to Answer Difficulty w/ Childcare or Family Care: Decline to Answer Living arrangements: with family Occupation/Education: retired Gender identity (if verbalized by the patient): Female Exam Narrative: APPEARANCE: Well appearing, no pain, no distress, well-nourished. HEAD: normocephalic, atraumatic. EYES: PERRLA/EOMI, conjunctivae clear. NOSE: Normal no drainage EARS:TMS clear with good light reflex. THROAT: Pharynx clear, no exudate. NECK: Supple. No adenopathy, no masses. RESPIRATORY: Airway patent, respirations nonlabored. Clear to auscultation bilaterally, no rales, rhonchi, wheezing. CARDIOVASCULAR: Regular rate and rhythm without murmurs rubs or gallops. ABDOMINAL: Epigastric tenderness to palpation MUSCULOSKELETAL: Moves all extremities. Strength/ROM intact, No edema, No calf tenderness. NEURO: Alert. Cranial nerves II through XII intact. Grossly intact SKIN: Warm, dry. Normal Color Course Vital Signs Vital signs: Vital Signs Temperature 98.5 F 08/21/25 13:06 Pulse Rate 95 08/21/25 13:06 Respiratory Rate 16 08/21/25 13:06 Blood Pressure 150/70 H 08/21/25 13:06 Pulse Oximetry 97 08/21/25 13:06 Oxygen Delivery Room Air 08/21/25 13:06 Temperature 97.6 F 08/21/25 16:05 Pulse Rate 98 08/21/25 16:05 Respiratory Rate 18 08/21/25 16:05 Blood Pressure 154/72 H 08/21/25 16:05 Pulse Oximetry 98 08/21/25 16:05 Oxygen Delivery Room Air 08/21/25 13:06 Medical Decision Making MDM Narrative Medical decision making narrative: 72-year-old female presents emergency department for evaluation for diffuse abdominal pain. Patient is currently afebrile no leukocytosis hemoglobin of 13.6. Patient has no significant acute abnormalities on her CMP. Patient's creatinine is 1.05 which is similar to her baseline. Patient's T bili ALT alk-phos and lipase were within normal limits with a mild elevation of AST. Urine was negative for infection. CT scan showed no acute pathology. Was up to the results of the workup. Patient was encouraged of close follow-up with primary care physician. All questions concerns were addressed patient was well-appearing at time of discharge. Differential Diagnosis Differential Diagnosis: Colitis, diverticulitis, appendicitis, cholecystitis, pancreatitis, gastritis, urinary tract infection, ureteral calculi Vital Signs Vital Signs: Vital Signs Temperature 98.5 F 08/21/25 13:06 Pulse Rate 95 08/21/25 13:06 Respiratory Rate 16 08/21/25 13:06 Blood Pressure 150/70 H 08/21/25 13:06 Pulse Oximetry 97 08/21/25 13:06 Oxygen Delivery Room Air 08/21/25 13:06 Temperature 97.6 F 08/21/25 16:05 Pulse Rate 98 08/21/25 16:05 Respiratory Rate 18 08/21/25 16:05 Blood Pressure 154/72 H 08/21/25 16:05 Pulse Oximetry 98 08/21/25 16:05 Oxygen Delivery Room Air 08/21/25 13:06 Lab Data Lab results reviewed: Yes I reviewed the patient's lab results. 08/21/25 13:28 08/21/25 13:28 Labs: Lab Results 08/21/25 Range/Units 13:28 WBC 9.2 (4.5-10.0) K/mm3 RBC 4.69 (4.2-5.4) M/mm3 Hgb 13.6 (12.0-15.0) g/dL Hct 42.3 (37.0-47.0) % MCV 90.2 (80-100) fl MCH 29.0 (26-34) pg MCHC 32.2 (32-36) g/dl RDW 13.4 (11.5-14.5) % Plt Count 260 (150-375) k/mm3 MPV 10.2 (7.4-10.4) fl Immature Gran % (Auto) 0.2 (0-0.5) % Neut % (Auto) 67.5 (45.5-73.1) % Lymph % (Auto) 23.1 (18.3-44.2) % [place] % (Auto) 8.2 (2.6-8.5) % Eos % (Auto) 0.2 (0-4.4) % Baso % (Auto) 0.8 (0.2-1.2) % Lymph # (Auto) 2.13 (0.9-3.2) K/mm3 [place] # (Auto) 0.8 H (0.1-0.6) K/mm3 Eos # (Auto) 0.0 (0-0.3) K/mm3 Baso # (Auto) 0.1 (0.0-0.1) K/mm3 Abs Immat Gran (auto) 0.02 (0.00-0.031) K/mm3 Absolute Neuts (auto) 6.2 (1.3-6.7) K/mm3 Absolute Nucleated RBC 0.000 (0.0-0.012) K/mm3 Nucleated RBC % 0.0 (0.0-0.2) % Sodium 136 L (137-145) mmol/L Potassium 4.5 (3.4-5.0) mmol/L Chloride 103 (98-107) mmol/L Carbon Dioxide 23 (22-30) mmol/L Anion Gap 10 (4-12) mmol/L BUN 19 H (7-17) mg/dL Creatinine 1.05 H (0.7-1.0) mg/dL Estim Creat Clear Calc 39 ml/min Estimated GFR 51 L (59 - ) Glucose 124 H (65-110) mg/dL Calcium 9.8 (8.4-10.2) mg/dL Total Bilirubin 0.7 (0.2-1.3) mg/dL AST 37 H (14-36) U/L ALT 24 (6-35) U/L Alkaline Phosphatase 93 (38-126) U/L Total Protein 7.5 (6.3-8.2) g/dL Albumin 4.5 (3.5-5.1) g/dL Lipase 116 (23-300) U/L Urine Color Yellow (Yellow) Urine Appearance Clear (Clear) Urine pH 5.5 (5.0-9.0) Ur Specific [place] 1.030 (1.001-1.035) Urine Protein 3+ H (Negative) mg/dL Urine Glucose (UA) Trace H (Negative) mg/dL Urine Ketones 1+ H (Negative) mg/dL Ur Blood (Man) 1+ H (Negative) Urine Nitrate Negative (Negative) Urine Bilirubin 1+ H (Negative) Urine Urobilinogen 0.2 (<2.0) mg/dL Leukocyte Esterase Rfl Negative (Negative) OSMAN/UL Urine RBC 0-2 (0-2) /hpf Urine WBC 0-3 (0-3) /hpf Ur Squamous Epith Cells Moderate (Few) /hpf Urine Bacteria Trace /hpf Imaging Data Radiologist's impression: Impressions Abdomen/Pelvis CT 08/21/25 14:19 IMPRESSION: 1. Small sliding hiatal hernia. Discharge Plan Discharge Clinical Impression: Abdominal pain Patient Disposition: Home Condition: Stable Instructions: Antibiotic Form, Abdominal Pain (ED) Additional Instructions: Have close follow-up with your primary care physician. If you have any worsening symptoms please call or return to the emergency department. Patient Language: [place] Prescriptions: No Action calcium carbonate [Calcium 600] 600 mg calcium (1,500 mg) tablet 600 mg PO DAILY Fish Oil 100-160-1,000 mg capsule PO aspirin 81 mg tablet,chewable 81 mg PO DAILY pantoprazole 40 mg tablet,delayed release (DR/EC) See Rx Instructions .ROUTE .COMPLEX Qty: 90 2RF Dose Instruction: TAKE 1 TABLET BY MOUTH DAILY Rx Instructions: TAKE 1 TABLET BY MOUTH DAILY alendronate [Fosamax] 70 mg tablet 70 mg PO WEEKLY Qty: 4 0RF cholecalciferol (vitamin D3) 50 mcg (2,000 unit) tablet 4,000 unit PO DAILY nystatin 100,000 unit/gram cream See Rx Instructions .ROUTE .COMPLEX Qty: 30 2RF Rx Instructions: Apply to affected area up to tid prn; Colace Clear 50 mg capsule 50 mg PO QHS PRN (Reason: constipation) Qty: 30 0RF sertraline 50 mg tablet See Rx Instructions .ROUTE .COMPLEX Qty: 90 2RF Dose Instruction: TAKE 1 TABLET BY MOUTH DAILY Rx Instructions: TAKE 1 TABLET BY MOUTH DAILY rosuvastatin 20 mg tablet See Rx Instructions .ROUTE .COMPLEX Qty: 90 2RF Dose Instruction: TAKE 1 TABLET BY MOUTH DAILY Rx Instructions: TAKE 1 TABLET BY MOUTH DAILY lisinopril 10 mg tablet See Rx Instructions .ROUTE .COMPLEX Qty: 90 2RF Dose Instruction: TAKE 1 TABLET BY MOUTH DAILY Rx Instructions: TAKE 1 TABLET BY MOUTH DAILY tramadol 50 mg tablet 50 mg PO Q6H PRN (Reason: pain) Qty: 30 1RF amlodipine 5 mg tablet See Rx Instructions .ROUTE .COMPLEX Qty: 90 2RF Dose Instruction: TAKE 1 TABLET BY MOUTH DAILY Rx Instructions: TAKE 1 TABLET BY MOUTH DAILY temazepam 15 mg capsule 15 mg PO QHS PRN (Reason: sleep) Qty: 30 3RF Follow-up/Referrals: Vance Parish MD [Primary Care Provider, Internal Medicine]
[2025-08-21 13:52] LABS: Alanine Aminotransferase 24 U/L (6-35); Albumin Level 4.5 g/dL (3.5-5.1); Alkaline Phosphatase 93 U/L (38-126); Anion Gap 10 mmol/L (4-12); Aspartate Amino Transferase 37 U/L (14-36); Bilirubin,Total 0.7 mg/dL (0.2-1.3); Blood Urea Nitrogen 19 mg/dL (7-17); Calcium 9.8 mg/dL (8.4-10.2); Carbon Dioxide 23 mmol/L (22-30); Chloride 103 mmol/L (98-107); Estimated CRCL calculation 39 ml/min; Estimated Glomerular Filt Rate 51; Glucose 124 mg/dL (65-110); Lipase 116 U/L (23-300); Potassium 4.5 mmol/L (3.4-5.0); Sodium 136 mmol/L (137-145); Total Protein 7.5 g/dL (6.3-8.2)
[2025-08-21] MEDS: ACETAMINOPHEN 500 MG TABLET 1000 MG PO (15:24)
[2025-08-21 16:05] VITALS: BP 154/72; PULSE 98; RESP 18; TEMP 36.4; O2SAT 98
== END 2025-08-21 16:08 | disposition home or self-care (01) ==
PROVIDERS: Student in an Organized Health Care Education/Training Program; Emergency Provider Emergency Medicine; PCP Emergency Medicine
DX: R10.30 Lower abdominal pain, unspecified (principal); I10 Essential (primary) hypertension; E78.2 Mixed hyperlipidemia; M16.0 Bilateral primary osteoarthritis of hip; M85.80 Other specified disorders of bone density and structure, unspecified site; Z87.440 Personal history of urinary (tract) infections; Z87.442 Personal history of urinary calculi; K44.9 Diaphragmatic hernia without obstruction or gangrene; Z79.899 Other long term (current) drug therapy
CPT/HCPCS: 36415; 74177; 80053; 81001; 83690; 85025; 99284; A9270; Q9967